=== PATIENT | female | born 1955 | race Caucasian/White ===

== ENCOUNTER → 2023-12-10 14:29 | Outpatient (REF) | payer MEDICARE, SELFPAY | LOC: PAVMRI 14:29 | PROVIDERS: ATTENDING PHYSICIAN Psychiatry & Neurology Neurology; FAMILY PHYSICIAN Physician Assistant Medical | DX: G93.40 Encephalopathy, unspecified (principal); R90.89 Other abnormal findings on diagnostic imaging of central nervous system | CPT/HCPCS: 70553; A9575 ==

== ENCOUNTER 2024-06-17 16:22 | Emergency (ER) | payer MEDICARE, SELFPAY ==
[2024-06-17 16:25] VITALS: BP 190/102
[2024-06-17 16:58] LABS: ALT (SGPT) 43 U/L (0-35); AST (SGOT) 45 U/L (14-36); Albumin 4.5 g/dl (3.5-5.0); Alkaline Phosphatase 81 U/L (38-126); Blood Urea Nitrogen 22 mg/dl (7-17); Carbon Dioxide 28 mmol/L (22-30); Chloride 102 mmol/L (98-107); Glucose 100 mg/dl (70-99); Potassium 3.4 mmol/L (3.5-5.1); Sodium 142 mmol/L (135-145); Total Bilirubin 0.7 mg/dl (0.2-1.3); Total Protein 6.9 g/dl (6.3-8.2); eGFR > 60.00
[2024-06-17 17:11] LABS: % Basophils 0.6 % (0-2); % Eosinophils 4.6 % (0-6); % Immature Granulocytes 0.2 % (0-0.5); % Lymphocytes 25.8 % (20.5-51.1); % Monocytes 8.6 % (1.7-9.3); % Neutrophils 59.6 % (42.2-75.2); Absolute Basophils 0.1 10^3/uL (0-0.2); Absolute Eosinophils 0.4 10^3/uL (0-0.7); Absolute Lymphocytes 2.2 10^3/uL (1.2-3.4); Absolute Monocytes 0.7 10^3/uL (0.1-0.6); Absolute Neutrophils 5.2 10^3/uL (1.4-6.5); Hemoglobin 13.7 g/dL (12.0-16.0); Mean Corp Hgb Conc. 35.1 g/dL (33.0-37.0); Mean Corpuscular Hgb 29.8 pg (27.0-31.0); Mean Corpuscular Volume 84.8 fL (81.0-99.0); Mean Platelet Volume 11.5 fL (7.4-10.4); Nucleated Red Blood Cells % 0 %; Platelet Count 212 10^3/uL (130-400); Red Blood Cell Count 4.59 10^6/uL (4.20-5.40); Red Cell Dist. Width 12.7 % (11.5-14.5); White Blood Cell Count 8.6 10^3/uL (4.8-10.8)
[2024-06-17 17:36] VITALS: BMI 32.8
[2024-06-17 17:43] VITALS: BP 150/69
--- NOTE | 2024-06-17 17:44 | ED.GENMED ---
History of Present Illness
General
Chief Complaint: Blood Pressure Problem
Time Seen by Provider: 06/17/24 17:43
History of Present Illness
History of Present Illness:
Patient presents to the emergency department with elevated blood pressure. She notes that it is gradually been trending up over the past few weeks. At her doctor's appointment today it was 180/110. She reports mild lower extremity edema that
resolved throughout the day. She also endorses chronic lymphedema to her right upper extremity. Denies any chest pain or shortness of breath. Denies any headache or visual changes. Takes losartan HCTZ 100/12.5 mg
Past History
Past History
ED Past Medical History: HTN
ED Past Surgical History: None
Social History
Personal:
Living: with family
Employment: Employed (office work)
Phy Exam
Physical Exam
Physical Exam:
GENERAL APPEARANCE: NAD, well developed/ well nourished
EYES lids/conjunctiva normal
EARS/NOSE/THROAT Mucous membranes moist, uvula midline without oral pharyngeal erythema, exudate or swelling
HEAD/NECK normocephalic atraumatic, neck is supple.
RESPIRATORY respiratory effort normal, speaks in full sentences, no accessory muscle use. Lungs clear to auscultation without rhonchi, wheezes, rales
CARDIAC Regular rate and rhythm, no edema.
ABDOMINAL Soft, ND/NT. No pulsatile masses on exam, rebound tenderness, Pelayo sign or pain over Mcburney's point.
MUSCLES/EXTREMITIES No abnormal range of motion, no swelling.
SKIN Warm, pink and dry. No rashes
NEUROLOGICAL Speech is clear and appropriate. Normal level of consciousness. 5/5 strength in all extremities.
PSYCH Normal mood and affect. Judgement/competence is appropriate
Course
Orders/Labs/Results
Orders:
Orders
06/17/24 16:30
Electrocardiogram (*1) Urgent
Reason for Study: Hypertension, Benign
EKG- Treatment ONCE
06/17/24 16:38
Complete Blood Count/With Diff Urgent
Comprehensive Metabolic Panel Urgent
Abnormal Lab Results
06/17/24
16:38
MPV 11.5 H fL
(7.4-10.4)
Absolute Monos (auto) 0.7 H 10^3/uL
(0.1-0.6)
Potassium 3.4 L mmol/L
(3.5-5.1)
BUN 22 H mg/dl
(7-17)
Glucose 100 H mg/dl
(70-99)
AST 45 H U/L
(14-36)
ALT 43 H U/L
(0-35)
06/17/24 16:38
06/17/24 16:38
Vital Signs
Initial and Last Documented VS:
Initial Vital Signs
Temp Pulse Resp BP Pulse Ox
98.3 F 92 16 190/102 98
06/17/24 16:25 06/17/24 16:25 06/17/24 16:25 06/17/24 16:25 06/17/24 16:25
Last Documented Vital Signs
Temp Pulse Resp BP Pulse Ox
98.3 F 77 14 150/69 97
06/17/24 16:25 06/17/24 17:43 06/17/24 17:43 06/17/24 17:43 06/17/24 17:43
*Critical Care Note
Total Time (30-74mins, 75-104mins- exclusive of procedures): Not Applicable
ED Attending Note
ED Attending Note
ED Attending Note:
Patient presents with chronic uncontrolled hypertension. She has no specific symptoms at this time. Edema has improved. There is no signs or send of acute endorgan damage. EKG without acute ischemic changes. Blood pressure improving without
intervention in the emergency department. I have instructed her to follow-up with her primary doctor in the next couple of days for blood pressure recheck and possible medication adjustment
-
Portions of this chart may have been created with voice recognition software.� Occasional wrong word or��sound alike� substitutions may have occurred due to the inherent limitations of voice recognition software.
Discharge Plan
Departure
Patient Disposition: Home (Routine Discharge)
Date of Disposition: 06/17/24
Time of Disposition: 17:53
Patient with high blood pressure during this ER visit?: Yes
Discharge Problem:
Hypertension
Prescriptions:
No Action
atorvastatin 20 mg Tablet
20 mg PO DAILY
losartan-hydrochlorothiazide 100-12.5 mg Tablet
1 tab PO DAILY
cholecalciferol (vitamin D3) 50 mcg (2,000 unit) Tablet
2,000 unit PO DAILY Qty: 30 0RF
cyanocobalamin (vitamin B-12) 50 mcg Tablet
50 mcg PO DAILY
Activity Restrictions/Additional Instructions:
Please follow-up with your primary doctor in the next 1 to 2 days for blood pressure recheck and continued management. Return to the emergency department with severe headache, visual changes, chest pain, abdominal pain or other severe symptoms
Interventions
Interventions:
*Risk Screen - Suicide Last Done: 06/17/24 17:41
*General Assessment Last Done: 06/17/24 17:41
*Neglect/Abuse Screening Last Done: 06/17/24 17:41
*ED COVID-19 Vaccine History Last Done: 06/17/24 17:41
*Nursing Disposition Last Done: 06/17/24 17:59
ED- Cardiac Assessment Last Done: 06/17/24 17:53
ED- Neurological Assessment Last Done: 06/17/24 17:53
ED- Pulmonary Assessment Last Done: 06/17/24 17:53
Discharge Date and Time
Discharge Date/Time: 06/17/24 17:59
Print Language: HEBREW
--- NOTE | 2024-06-17 17:46 | EDRN ---
Pt says her bp is usually well controlled and she noted her bp was high today. Pt took her sock off last night and noted swelling on L side around her sock and she says she has not been urinating as often as she usually does. Lymphedema L arm
increased - pt had lymph nodes remove 2011. No pain legs/arms. No cp, sob, abd pain, n/v, fever/chills/cough, weakness, dizziness.
== END 2024-06-17 17:59 | disposition home or self-care (01) ==
LOC: EMR 16:22
PROVIDERS: EMERGENCY PHYSICIAN Emergency Medicine
DX: I10 Essential (primary) hypertension (principal); I89.0 Lymphedema, not elsewhere classified; Z88.8 Allergy status to other drugs, medicaments and biological substances
CPT/HCPCS: 99283; 80053; 85025; 93005

== ENCOUNTER → 2024-06-24 07:56 | Outpatient (REF) | payer MEDICARE, SELFPAY ==
[2024-06-24 08:47] LABS: % Basophils 0.6 % (0-2); % Eosinophils 5.5 % (0-6); % Immature Granulocytes 0.3 % (0-0.5); % Lymphocytes 27.3 % (20.5-51.1); % Monocytes 10.2 % (1.7-9.3); % Neutrophils 56.1 % (42.2-75.2); Absolute Eosinophils 0.4 10^3/uL (0-0.7); Absolute Lymphocytes 1.9 10^3/uL (1.2-3.4); Absolute Monocytes 0.7 10^3/uL (0.1-0.6); Absolute Neutrophils 3.8 10^3/uL (1.4-6.5); Hematocrit 39.3 % (37.0-47.0); Hemoglobin 13.9 g/dL (12.0-16.0); Mean Corp Hgb Conc. 35.4 g/dL (33.0-37.0); Mean Corpuscular Hgb 31.4 pg (27.0-31.0); Mean Corpuscular Volume 88.7 fL (81.0-99.0); Mean Platelet Volume 11.6 fL (7.4-10.4); Nucleated Red Blood Cells % 0 %; Platelet Count 187 10^3/uL (130-400); Red Blood Cell Count 4.43 10^6/uL (4.20-5.40); Red Cell Dist. Width 12.7 % (11.5-14.5); White Blood Cell Count 6.8 10^3/uL (4.8-10.8)
[2024-06-24 09:09] LABS: Erythrocyte Sed Rate 21 mm/hour (0-20)
[2024-06-24 09:18] LABS: Calcium 9.9 mg/dl (8.4-10.2)
[2024-06-24 09:20] LABS: ALT (SGPT) 40 U/L (0-35); AST (SGOT) 41 U/L (14-36); Albumin 4.5 g/dl (3.5-5.0); Alkaline Phosphatase 80 U/L (38-126); Blood Urea Nitrogen 21 mg/dl (7-17); Calcium 10.1 mg/dl (8.4-10.2); Carbon Dioxide 26 mmol/L (22-30); Chloride 104 mmol/L (98-107); Glucose 105 mg/dl (70-99); HDL Cholesterol 64 mg/dl; LDL Cholesterol, Calculated 72 mg/dl; Potassium 3.7 mmol/L (3.5-5.1); Sodium 143 mmol/L (135-145); Total Bilirubin 0.8 mg/dl (0.2-1.3); Total Cholesterol 156 mg/dl (50-199); Total Protein 6.9 g/dl (6.3-8.2); Triglyceride 100 mg/dl (10-149); Very Low Density Lipoprotein 20 mg/dl (0-30); eGFR > 60.00
[2024-06-24 09:46] LABS: TSH 2.89 uIU/ml (0.47-4.68)
[2024-06-24 09:50] LABS: Hepatitis B Surface Antigen Negative (Negative)
[2024-06-24 10:00] LABS: Glycohemoglobin (HgbA1c) 5.4 % (4.0-5.6)
[2024-06-24 10:09] LABS: Hepatitis B Core Ab, Total Negative (Negative); Hepatitis B Surface Antibody Negative; Hepatitis C Antibody Negative (Negative)
[2024-06-25 11:41] LABS: Intact PTH 35.6 pg/ml (13.6-85.8)
[2024-06-25 23:30] LABS: Angiotensin-1-converting Enzym 35 U/L (16-85)
[2024-06-26 01:16] LABS: CCP Antibody IgG/IgA 4 Units (0-19)
[2024-06-26 01:45] LABS: Beta-2-Glycoprotein I Ab. IgA <10 SAU (<=20); Beta-2-Glycoprotein I Ab. IgG <10 SGU (<=20); Beta-2-Glycoprotein I Ab. IgM <10 SMU (<=20)
[2024-06-26 01:55] LABS: ANA, IgG Reflex to HEp-2 Detected (None Detected)
[2024-06-26 07:53] LABS: Quantiferon Plus TB1 minus NIL 0.01 IU/mL (<=0.34); Quantiferon Plus TB2 minus NIL 0.01 IU/mL (<=0.34); Quantiferon TB Gold Plus Negative (Negative)
[2024-06-26 18:29] LABS: Cardiolipin IgA Antibody <10 APL (<=11); Cardiolipin IgM Antibody <10 MPL (<=12); Cardiolipin Igg Antibody <10 GPL (<=14)
[2024-06-26 23:13] LABS: Complement C3 133 mg/dl (88-165)
[2024-06-27 08:19] LABS: ANA, HEp-2, IgG Detected (<1:80)
== END ==
LOC: REG 07:56
PROVIDERS: ATTENDING PHYSICIAN Physician Assistant Medical; FAMILY PHYSICIAN Student in an Organized Health Care Education/Training Program
DX: I10 Essential (primary) hypertension (principal); E87.6 Hypokalemia; R74.01 Elevation of levels of liver transaminase levels; E78.2 Mixed hyperlipidemia; R73.01 Impaired fasting glucose; Z85.3 Personal history of malignant neoplasm of breast; Z68.32 Body mass index [BMI] 32.0-32.9, adult; I89.0 Lymphedema, not elsewhere classified; G45.4 Transient global amnesia; I16.0 Hypertensive urgency; R76.8 Other specified abnormal immunological findings in serum
CPT/HCPCS: 36415; 80053; 80061; 82164; 83036; 83970; 84155; 84165; 84443; 85025; 85652; 86038; 86146; 86147; 86148; 86160; 86200; 86430; 86480; 86704; 86706; 86803; 87340

== ENCOUNTER 2024-08-09 15:06 | Emergency (ER) | payer MEDICARE, SELFPAY ==
[2024-08-09 15:12] VITALS: BP 185/85
[2024-08-09 15:55] LABS: % Basophils 0.6 % (0-2); % Immature Granulocytes 0.2 % (0-0.5); % Lymphocytes 31.7 % (20.5-51.1); % Monocytes 7.2 % (1.7-9.3); % Neutrophils 55.3 % (42.2-75.2); Absolute Basophils 0.1 10^3/uL (0-0.2); Absolute Eosinophils 0.4 10^3/uL (0-0.7); Absolute Lymphocytes 2.6 10^3/uL (1.2-3.4); Absolute Monocytes 0.6 10^3/uL (0.1-0.6); Absolute Neutrophils 4.5 10^3/uL (1.4-6.5); Hemoglobin 14.7 g/dL (12.0-16.0); Mean Corp Hgb Conc. 34.2 g/dL (33.0-37.0); Mean Corpuscular Hgb 30.7 pg (27.0-31.0); Mean Corpuscular Volume 89.8 fL (81.0-99.0); Mean Platelet Volume 10.9 fL (7.4-10.4); Nucleated Red Blood Cells % 0 %; Platelet Count 228 10^3/uL (130-400); Red Blood Cell Count 4.79 10^6/uL (4.20-5.40); Red Cell Dist. Width 12.4 % (11.5-14.5); White Blood Cell Count 8.1 10^3/uL (4.8-10.8)
[2024-08-09 16:11] LABS: ALT (SGPT) 29 U/L (0-35); AST (SGOT) 33 U/L (14-36); Albumin 4.7 g/dl (3.5-5.0); Alkaline Phosphatase 86 U/L (38-126); Blood Urea Nitrogen 15 mg/dl (7-17); Calcium 9.9 mg/dl (8.4-10.2); Carbon Dioxide 28 mmol/L (22-30); Chloride 104 mmol/L (98-107); Glucose 88 mg/dl (70-99); Sodium 144 mmol/L (135-145); Total Bilirubin 0.8 mg/dl (0.2-1.3); Total Protein 7.3 g/dl (6.3-8.2); eGFR > 60.00
[2024-08-09 16:19] VITALS: BP 148/84
--- NOTE | 2024-08-09 16:40 | ED.CVA ---
ED Provider Triage
-
69-year-old female 2 weeks ago well going into a car wash had a few seconds of visual problems with her right eye she is at the vision turn to the side, no headache no nausea vomiting no slurred speech symptoms improved spontaneously, she saw her
PCP today for check up told her about his symptoms recommended she see her eye care provider who she did today saw Dr. Miguel, who had previously done her cataract surgery, right eye recommended that she come to the ER to be evaluated for possible
stroke
She had a visit to the ER previously with high blood pressure thought to be related to NSAID use, subsequently had a visit with transient global amnesia
Takes a statin takes a blood pressure pill not on any aspirin nondrinker non-smoker
History of Present Illness
General
Chief Complaint: CVA/TIA Symptoms
Source: patient
Exam Limitations: none
Time Seen by Provider: 08/09/24 16:10
Nursing documentation reviewed up to this point in time: agreed with
Onset of Stroke Symptoms
Onset of symptoms known: Yes
Date of onset of symptoms: 07/26/24
History of Present Illness
History of Present Illness:
69-year-old female 2 weeks ago(she apparently told the triage nurse 10 days ago) while going into a car wash had a few seconds of visual problems with her right eye she is at the vision turn to the side, no headache no nausea vomiting no slurred
speech symptoms improved spontaneously, she saw her PCP today for check up told her about his symptoms recommended she see her eye care provider who she did today saw Dr. Miguel, who had previously done her cataract surgery, right eye recommended
that she come to the ER to be evaluated for possible stroke
She had a visit to the ER previously with high blood pressure thought to be related to NSAID use, subsequently had a visit with transient global amnesia
Takes a statin takes a blood pressure pill not on any aspirin nondrinker non-smoker
Past History
Past History
ED Past Medical History: HTN
ED Past Surgical History: None
Social History
Personal:
Living: with family
Employment: Employed (office work)
Review of Systems
Review of Systems
All Other Systems: Not applicable
EENT: Reports no symptoms
Respiratory: Reports no symptoms
Cardiac: Reports no symptoms
ABD/GI: Reports no symptoms
: Reports no symptoms
Phy Exam
Physical Exam
Physical Exam:
Physical Exam
General: no apparent distress, not acutely ill
Neck: Pupils are dilated(was dilated at eye care provider earlier today)
Heart: s1/s2 regular rate and rhythm, no murmur. equal radial pulses.
Lungs: no acute respiratory distress. clear bilaterally
Neuro: alert and oriented. no focal neurological deficits
Skin: no rash
Psychiatric: well kept. interactive and cooperative
Extremities: no edema.
Course
Orders/Labs/Results
Orders:
Orders
08/09/24 15:45
CMP [Comprehensive Metabolic Panel] Urgent
Complete Blood Count/With Diff Urgent
08/09/24 16:19
Electrocardiogram (*1) Stat
Reason for Study: Other
Other Reason for Exam: neuro symptoms
CT Head & Neck Angio W/wo IV Urgent
Comment:
Reason For Exam: vision loss
EKG- Treatment ONCE
Abnormal Lab Results
08/09/24
15:45
MPV 10.9 H fL
(7.4-10.4)
08/09/24 15:45
08/09/24 15:45
Vital Signs
Initial and Last Documented VS:
Initial Vital Signs
Temp Pulse Resp BP Pulse Ox
98.0 F 80 16 185/85 99
08/09/24 15:12 08/09/24 15:12 08/09/24 15:12 08/09/24 15:12 08/09/24 15:12
Last Documented Vital Signs
Temp Pulse Resp BP Pulse Ox
98.0 F 81 17 148/84 95
08/09/24 15:12 08/09/24 16:45 08/09/24 16:45 08/09/24 16:19 08/09/24 16:45
MDM/Problems Addressed
Differential Diagnosis Includes:
TIA ocular migraine amaurosis intraocular issue CVA mass
MDM/Problems Addressed:
Visual problem 14 days ago
Chronic conditions affecting care: HTN
Acute Exacerbation and/or Progression of Chronic Illness: HTN
*Radiology
Radiology exam reviewed: radiology read reviewed
*Pulse Oximetry
Patient hypoxic: no
*EKG
Interpreted by ED Provider?: Yes
Interpretation: normal
Comparison EKG: no comparison EKG present
Heart Rate: 78
Rate: normal
Rhythm: sinus
Ischemia: no ischemia
*Stoker Mechanic Interpretation
Rate: normal
Interpretation: normal
Heart Rate: 78
Rhythm: sinus
*Critical Care Note
Total Time (30-74mins, 75-104mins- exclusive of procedures): Not Applicable
Update Note
Update Note:
Update 2 weeks after transient symptoms, no residual apparently, has had a dilated eye exam today, will check CT head CT angiogram, consideration for restarting antiplatelet agents also check EKG to look for AF keep her on the cardiac cath lab radiology technologist here
[address] noted, no acute abnormality suggestive scarring versus malignancy versus fracture of the right upper lobe I did discuss this with the patient with her son told them they need to follow-up with her family doctor to discuss further testing
radiology recommended a dedicated CAT scan
As far as antiplatelet agents patient would like to talk to her PCP about that as she believes NSAIDs gave her high blood pressure she is 2 weeks out from her episode, that is reasonable, clearly instructed to return to the ER if worsening
neurologic symptoms
ED Attending Note
-
Portions of this chart may have been created with voice recognition software.� Occasional wrong word or��sound alike� substitutions may have occurred due to the inherent limitations of voice recognition software.
Discharge Plan
Departure
Patient Disposition: Home (Routine Discharge)
Date of Disposition: 08/09/24
Time of Disposition: 18:57
Patient with high blood pressure during this ER visit?: No
Condition: Good
Discharge Problem:
Vision changes
Prescriptions:
No Action
atorvastatin 20 mg Tablet
20 mg PO DAILY
losartan-hydrochlorothiazide 100-12.5 mg Tablet
1 tab PO DAILY
cholecalciferol (vitamin D3) 50 mcg (2,000 unit) Tablet
2,000 unit PO DAILY Qty: 30 0RF
cyanocobalamin (vitamin B-12) 50 mcg Tablet
50 mcg PO DAILY
Referrals:
Elicia Contreras DO [Family Provider] -
Activity Restrictions/Additional Instructions:
Follow-up with your primary care provider
Discuss whether you should be on aspirin or other antiplatelet agents with number
Additionally your CAT scan was abnormal today there is an abnormality in your upper lung the radiologist has recommended a dedicated CAT scan to that area
Discussed this with your family
Interventions
Interventions:
*Risk Screen - Suicide Last Done: 08/09/24 15:12
*General Assessment Last Done: 08/09/24 15:12
*Neglect/Abuse Screening Last Done: 08/09/24 15:12
*ED COVID-19 Vaccine History Last Done: 08/09/24 16:12
ED- Pulmonary Assessment Last Done: 08/09/24 16:25
ED- Neurological Assessment Last Done: 08/09/24 16:25
ED- Cardiac Assessment Last Done: 08/09/24 16:25
Discharge Date and Time
Print Language: SLOVENIAN
[2024-08-09 19:07] VITALS: BP 163/95
== END 2024-08-09 19:11 | disposition home or self-care (01) ==
LOC: EMR 15:06
PROVIDERS: Emergency Medicine; EMERGENCY PHYSICIAN Emergency Medicine; FAMILY PHYSICIAN Student in an Organized Health Care Education/Training Program
DX: H53.8 Other visual disturbances (principal); I10 Essential (primary) hypertension
CPT/HCPCS: 99284; 70496; 70498; 80053; 85025; 93005; Q9967

== ENCOUNTER → 2024-08-15 09:04 | Outpatient (REF) | payer MEDICARE, SELFPAY | LOC: HWRAD 09:04 | PROVIDERS: ATTENDING PHYSICIAN Physician Assistant Medical | DX: R91.8 Other nonspecific abnormal finding of lung field (principal) | CPT/HCPCS: 71260; Q9967 ==

== ENCOUNTER 2025-01-07 15:04 | Emergency (ER) | payer MEDICARE, SELFPAY ==
[2025-01-07 15:09] VITALS: BP 180/90
[2025-01-07 15:39] LABS: % Basophils 0.5 % (0-2); % Eosinophils 2.9 % (0-6); % Immature Granulocytes 0.5 % (0-0.5); % Lymphocytes 31.9 % (20.5-51.1); % Monocytes 10.5 % (1.7-9.3); % Neutrophils 53.7 % (42.2-75.2); Absolute Eosinophils 0.2 10^3/uL (0-0.7); Absolute Lymphocytes 2.5 10^3/uL (1.2-3.4); Absolute Monocytes 0.8 10^3/uL (0.1-0.6); Absolute Neutrophils 4.2 10^3/uL (1.4-6.5); Hematocrit 41.3 % (37.0-47.0); Hemoglobin 13.9 g/dL (12.0-16.0); Mean Corp Hgb Conc. 33.7 g/dL (33.0-37.0); Mean Corpuscular Hgb 30.1 pg (27.0-31.0); Mean Corpuscular Volume 89.4 fL (81.0-99.0); Mean Platelet Volume 11.4 fL (7.4-10.4); Nucleated Red Blood Cells % 0 %; Platelet Count 220 10^3/uL (130-400); Red Blood Cell Count 4.62 10^6/uL (4.20-5.40); White Blood Cell Count 7.8 10^3/uL (4.8-10.8)
[2025-01-07 15:40] LABS: Urine Albumin Negative (Neg - Trace); Urine Bilirubin Negative (Negative); Urine Character Clear (Clear); Urine Color Yellow; Urine Glucose Negative (Negative); Urine Ketone Negative (Negative); Urine Leukocyte 1+ (Negative); Urine Nitrite Negative (Negative); Urine Occult Blood 1+ (Negative); Urine Urobilinogen Negative (Neg - 1+)
[2025-01-07 15:44] LABS: ALT (SGPT) 30 U/L (0-35); AST (SGOT) 34 U/L (14-36); Albumin 4.9 g/dl (3.5-5.0); Blood Urea Nitrogen 16 mg/dl (7-17); Carbon Dioxide 29 mmol/L (22-30); Glucose 85 mg/dl (70-99); Total Bilirubin 0.8 mg/dl (0.2-1.3); Total Protein 7.3 g/dl (6.3-8.2); eGFR > 60.00
[2025-01-07 15:51] LABS: Urine Red Blood Cell 0-2 /HPF (0-2); Urine Yeast Few (Negative)
[2025-01-07 15:53] LABS: Alkaline Phosphatase 74 U/L (38-126); Calcium 10.2 mg/dl (8.4-10.2); Chloride 104 mmol/L (98-107); Potassium 3.4 mmol/L (3.5-5.1); Sodium 143 mmol/L (135-145)
--- NOTE | 2025-01-07 16:02 | ED.GENMED ---
History of Present Illness
General
Chief Complaint: Urinary Symptoms
Source: patient
Exam Limitations: none
Time Seen by Provider: 01/07/25 16:01
Nursing documentation reviewed up to this point in time: agreed with
History of Present Illness
History of Present Illness:
69 yr old presents here to the ER to obtain a urinalysis. Patient reports she was recently evaluated by a air deodorizer servicer for possible lupus workup and instructed to get a repeat urinalysis because a previous UA she had taken showed protein in her
urine .
She has no symptoms. Her sand worker is Dr. Arelis Contreras
Past History
Past History
ED Past Medical History: HTN
ED Past Surgical History: None
Social History
Personal:
Living: with family
Employment: Employed (office work)
Review of Systems
Review of Systems
Allergies reviewed?: Yes
All Other Systems: ROS reviewed and negative except as documented in HPI and ROS
Constitutional: Reports no symptoms; Denies fever, fatigue or chills
Respiratory: Reports no symptoms
Cardiac: Reports no symptoms
ABD/GI: Reports no symptoms
: Reports no symptoms; Denies dysuria, frequency, flank pain, incontinence, difficulty voiding, urgency, bleeding, dark urine, discharge or other
Musculoskeletal: Reports no symptoms
Skin: Reports no symptoms
Neurological: Reports no symptoms
Hematologic/Lymphatic: Reports no symptoms
Psychiatric: Reports no symptoms
Phy Exam
General Physical Exam
General Presentation: no apparent distress
General age: appears stated age
General Skin: warm and dry
General Habitus: normal
General Mental: alert
General Hydration: appears well hydrated
Cardiovascular Exam
Cardiovascular Exam: regular rate/rhythm, no murmur and normal peripheral pulses
Pulmonary Exam
Pulmonary Exam: lungs clear and no respiratory distress
Neurological Exam
Neurological Exam: alert and oriented x3
Musculoskeletal Exam
Musculoskeletal Exam: full ROM
Skin Exam
Skin Exam: normal color and warm/dry
Psychiatric Exam
Psychiatric Exam: normal mood/affect
Course
Orders/Labs/Results
Orders:
Orders
01/07/25 15:19
Complete Blood Count/With Diff Urgent
Comprehensive Metabolic Panel Urgent
01/07/25 15:22
Urinalysis Reflex To Culture Urgent
Date Specimen was Collected: 01/07/25
Time Specimen was Collected: 15:12
Urine Microscopic Reflex Cult Urgent
Urine Culture Urgent
ROYA Source: U
Specimen Description:
Obtained by: Random
Date Specimen was Collected: 01/07/25
Time Specimen was Collected: 15:12
Abnormal Lab Results
01/07/25 01/07/25
15:19 15:22
MPV 11.4 H fL
(7.4-10.4)
Absolute Monos (auto) 0.8 H 10^3/uL
(0.1-0.6)
Monocytes % 10.5 H %
(1.7-9.3)
Potassium 3.4 L mmol/L
(3.5-5.1)
Ur Occult Blood Reflex 1+ A
(Negative)
Leukocyte Esterase Rfl 1+ A
(Negative)
Urine Yeast Few A
(Negative)
01/07/25 15:19
01/07/25 15:19
Vital Signs
Initial and Last Documented VS:
Initial Vital Signs
Temp Pulse Resp BP Pulse Ox
98.6 F 105 16 180/90 99
01/07/25 15:09 01/07/25 15:09 01/07/25 15:09 01/07/25 15:09 01/07/25 15:09
Last Documented Vital Signs
Temp Pulse Resp BP Pulse Ox
98.6 F 105 16 180/90 99
01/07/25 15:09 01/07/25 15:09 01/07/25 15:09 01/07/25 15:09 01/07/25 15:09
MDM/Problems Addressed
MDM/Problems Addressed:
Patient presents here for urinalysis. She recently had apparently an abnormal protein creatinine ratio in her urinalysis and was recommended to have a repeat urinalysis by her air deodorizer servicer. She presented here to the ER for this today. She has
no symptoms no complaints. Her kidney function is normal on her chemistry there is no protein listed in urine. I did speak with her air deodorizer servicer Dr.Kaitlyn Contreras. She does believe he may be a lab error. I did review all of the labs with her
physician. She will follow-up as an outpatient for additional rheumatology workup however patient is stable for discharge home.
*Critical Care Note
Total Time (30-74mins, 75-104mins- exclusive of procedures): Not Applicable
ED Attending Note
-
Portions of this chart may have been created with voice recognition software.� Occasional wrong word or��sound alike� substitutions may have occurred due to the inherent limitations of voice recognition software.
Discharge Plan
Departure
Patient Disposition: Home (Routine Discharge)
Date of Disposition: 01/07/25
Time of Disposition: 16:49
Admit to: Med/Surg
Patient with high blood pressure during this ER visit?: Yes
Condition: Fair
Covid-19: Not Applicable
Discharge Problem:
lab request
Instructions: BLOOD PRESSURE
Prescriptions:
No Action
atorvastatin 20 mg Tablet
20 mg PO DAILY
losartan-hydrochlorothiazide 100-12.5 mg Tablet
1 tab PO DAILY
cholecalciferol (vitamin D3) 50 mcg (2,000 unit) Tablet
2,000 unit PO DAILY Qty: 30 0RF
cyanocobalamin (vitamin B-12) 50 mcg Tablet
50 mcg PO DAILY
Referrals:
Elicia Contreras, DO [Active] -
Activity Restrictions/Additional Instructions:
Follow-up with your air deodorizer servicer. Please call to make an appointment .
return if any worsening of symptoms
Interventions
Interventions:
*Risk Screen - Suicide Last Done: 01/07/25 15:09
*General Assessment Last Done: 01/07/25 15:09
*Neglect/Abuse Screening Last Done: 01/07/25 15:09
*ED- Fall Risk Assessment Last Done: 01/07/25 17:25
*ED COVID-19 Vaccine History Last Done: 01/07/25 15:09
*Nursing Disposition Last Done: 01/07/25 17:25
ED-Female Genitourinary Assessment Last Done: 01/07/25 17:24
Discharge Date and Time
Discharge Date/Time: 01/07/25 17:25
Print Language: KINYARWANDA
== END 2025-01-07 17:25 | disposition home or self-care (01) ==
LOC: EMR 15:04
PROVIDERS: Emergency Medicine; EMERGENCY PHYSICIAN Student in an Organized Health Care Education/Training Program; FAMILY PHYSICIAN Physician Assistant Medical
DX: Z00.00 Encounter for general adult medical examination without abnormal findings (principal); I10 Essential (primary) hypertension
CPT/HCPCS: 99283; 80053; 81003; 81015; 85025; 87086

== ENCOUNTER → 2025-03-27 09:11 | Outpatient (REF) | payer MEDICARE, SELFPAY ==
[2025-03-27 10:49] LABS: Hematocrit 39.8 % (37.0-47.0); Hemoglobin 13.7 g/dL (12.0-16.0); Mean Corp Hgb Conc. 34.4 g/dL (33.0-37.0); Mean Corpuscular Volume 88.2 fL (81.0-99.0); Nucleated Red Blood Cells % 0 %; Platelet Count 212 10^3/uL (130-400); Red Cell Dist. Width 12.7 % (11.5-14.5)
[2025-03-27 11:44] LABS: AST (SGOT) 32 U/L (14-36); Albumin 4.5 g/dl (3.5-5.0); Alkaline Phosphatase 76 U/L (38-126); Calcium 9.9 mg/dl (8.4-10.2); Chloride 108 mmol/L (98-107); Glucose 103 mg/dl (70-99); HDL Cholesterol 55 mg/dl; Very Low Density Lipoprotein 24 mg/dl (0-30); eGFR > 60.00
[2025-03-27 11:52] LABS: Vitamin D, 25-OH*** 52.2 ng/mL (30-80)
[2025-03-27 11:53] LABS: ALT (SGPT) 32 U/L (0-35); Blood Urea Nitrogen 13 mg/dl (7-17); Carbon Dioxide 25 mmol/L (22-30); LDL Cholesterol, Calculated 79 mg/dl; Potassium 3.8 mmol/L (3.5-5.1); Sodium 141 mmol/L (135-145); Total Protein 7.1 g/dl (6.3-8.2)
[2025-03-27 12:06] LABS: TSH 2.40 uIU/ml (0.47-4.68)
[2025-03-27 12:26] LABS: Glycohemoglobin (HgbA1c) 5.6 % (4.0-5.6)
== END ==
LOC: REG 09:11
PROVIDERS: ATTENDING PHYSICIAN Physician Assistant Medical
DX: Z91.89 Other specified personal risk factors, not elsewhere classified (principal); I10 Essential (primary) hypertension; E78.2 Mixed hyperlipidemia; R73.01 Impaired fasting glucose; Z00.00 Encounter for general adult medical examination without abnormal findings; Z87.891 Personal history of nicotine dependence; Z68.32 Body mass index [BMI] 32.0-32.9, adult; Z78.0 Asymptomatic menopausal state; Z85.3 Personal history of malignant neoplasm of breast; R79.89 Other specified abnormal findings of blood chemistry; E55.9 Vitamin D deficiency, unspecified
CPT/HCPCS: 36415; 80053; 80061; 82306; 83036; 84443; 85025

== ENCOUNTER → 2025-04-24 10:16 | Outpatient (REF) | payer MEDICARE, SELFPAY ==
[2025-04-24 11:19] LABS: Urine Character Clear (Clear)
[2025-04-24 11:22] LABS: Hematocrit 40.0 % (37.0-47.0); Hemoglobin 13.8 g/dL (12.0-16.0); Mean Corp Hgb Conc. 34.5 g/dL (33.0-37.0); Mean Corpuscular Volume 87.9 fL (81.0-99.0); Nucleated Red Blood Cells % 0 %; Platelet Count 198 10^3/uL (130-400); Red Cell Dist. Width 12.7 % (11.5-14.5)
[2025-04-24 11:29] LABS: Urine Red Blood Cell 0-2 /HPF (0-2)
[2025-04-24 12:00] LABS: C-Reactive Protein < 5.00 mg/L (0.0-10.00)
[2025-04-24 12:07] LABS: ALT (SGPT) 29 U/L (0-35); AST (SGOT) 35 U/L (14-36); Albumin 4.7 g/dl (3.5-5.0); Alkaline Phosphatase 75 U/L (38-126); Blood Urea Nitrogen 9 mg/dl (7-17); Calcium 9.8 mg/dl (8.4-10.2); Carbon Dioxide 27 mmol/L (22-30); Chloride 107 mmol/L (98-107); Glucose 104 mg/dl (70-99); Potassium 3.7 mmol/L (3.5-5.1); Sodium 142 mmol/L (135-145); Total Protein 7.2 g/dl (6.3-8.2); eGFR > 60.00
[2025-04-26 01:56] LABS: Serine Protease-3, IgG 0 AU/mL (0-19)
[2025-04-26 09:48] LABS: ANA, IgG Reflex to HEp-2 Detected (None Detected)
[2025-04-26 10:20] LABS: Mitochondrial M2 Ab, IgG 2.4 Units (0.0-24.9)
[2025-04-26 14:01] LABS: Smith/RNP (ENA), IgG 4 Units (0-19)
== END ==
LOC: REG 10:16
PROVIDERS: ATTENDING PHYSICIAN Student in an Organized Health Care Education/Training Program; FAMILY PHYSICIAN Physician Assistant Medical
DX: G45.4 Transient global amnesia (principal); G56.01 Carpal tunnel syndrome, right upper limb; H53.9 Unspecified visual disturbance; I16.0 Hypertensive urgency; I77.82 Antineutrophilic cytoplasmic antibody [ANCA] vasculitis; M54.10 Radiculopathy, site unspecified; R74.01 Elevation of levels of liver transaminase levels; R76.8 Other specified abnormal immunological findings in serum; R80.9 Proteinuria, unspecified
CPT/HCPCS: 36415; 80053; 81003; 81015; 82164; 82570; 83516; 84156; 85025; 85652; 86015; 86038; 86140; 86160; 86225; 86235; 86381; 87086